=== PATIENT | female | born 1965 | race Caucasian/White ===

== ENCOUNTER → 2017-09-14 00:14 | Outpatient (CLI) | payer BC, SELFPAY ==
--- NOTE | 2017-09-14 07:46 | DI.REPORT_ITS ---
SYMPTOM/DIAGNOSIS: 6 MO F/U RT BR US R92.8 6-MONTH FOLLOW UP RIGHT MAMMOGRAM, RIGHT BREAST ULTRASOUND: Mammograms were interpreted according to the usual protocol including computer analysis with CAD system, tomosynthesis and C view imaging. Breast density C. No suspicious masses or microcalcifications are seen. The skin and axilla are unremarkable. The opacity at the 12 o'clock position of the right breast appears stable. Right breast ultrasound was performed. Comparison is made with examination from 03/09/17. There are again seen several cystic and solid masses within the right breast. These all appear stable in size. No new breast masses are seen in the upper outer quadrant of the right breast. IMPRESSION: No evidence for malignancy. No significant change compared to the prior examination. A 6-month follow up right mammogram and ultrasound are requested for continued monitoring of these lesions. Category 3-C. These findings were discussed with the patient on the date of the examination. MQSA ASSESSMENT OF FINDINGS: Probably benign. Six month follow-up recommended. Category 3. Patient will receive a letter notifying them of these results. Bi-RADS category C. The breasts are heterogeneously dense, which may obscure small masses.
== END ==
PROVIDERS: PCP Nurse Practitioner Gerontology; Visit Provider Nurse Practitioner Family
DX: Z12.31 Encounter for screening mammogram for malignant neoplasm of breast (principal); R92.8 Other abnormal and inconclusive findings on diagnostic imaging of breast; N63.10 Unspecified lump in the right breast, unspecified quadrant; N60.11 Diffuse cystic mastopathy of right breast
CPT/HCPCS: 76642; 77061; 77065; G0279

== ENCOUNTER 2019-03-24 14:37 | Outpatient (REF) | payer OTHER, SELFPAY ==
--- NOTE | 2019-03-24 13:30 | PAPFT_PTH ---
PATIENT: Alisson Castaneda LOC: [facility] U#:[id number] AGE/SX: 53/F ROOM: RE03/24/[address]: GABBIE Leos : 1965 BED: DIS: 03/24/2019 SPEC #: [id number] RECD: 03/24/19 17:23 STATUS: CESAR REJacobo #: [id number] ZACH: 03/24/19 13:[address]: Nallely Santacruz DEPT: [facility] Cytology RECD BY: Farideh Rodriguez ENTERED: 03/24/19 17:24 SP TYPE: PAPFT OTHR DR: Maylin West Tissues: 1 - CX/ENDOCX FOR PAP SMEARS Procedures: PAP THIN PREP/UVM Screening HPV DNA PROBE Comments: [id number]
== END 2019-03-24 14:57 ==
LOC: LBN 14:37
PROVIDERS: PCP Nurse Practitioner Gerontology; Visit Provider Nurse Practitioner Family
DX: Z12.4 Encounter for screening for malignant neoplasm of cervix (principal); Z11.51 Encounter for screening for human papillomavirus (HPV)
CPT/HCPCS: 88142; 87624

== ENCOUNTER 2019-06-29 03:02 | Outpatient (CLI) | payer OTHER, SELFPAY ==
--- NOTE | 2019-06-29 13:19 | DI.MAMMO_ITS ---
EXAM: MG MAMMO SCREENING CLINICAL HISTORY: screening,Z12.39 TECHNIQUE: Bilateral full field digital CC and MLO mammographic images were obtained with 3D tomosyn thesis and utilizing computer aided detection (CAD). COMPARISON: Available for comparison. FINDINGS: Masses/Architectural Distortion: The opacity seen at the 12 o'clock position of the right breast appe ars stable. No suspicious masses are seen. Microcalcifications: No suspicious pleomorphic-type are seen. Skin Thickening/Nipple Retraction: None. IMPRESSION: 1. No significant interval change with no specific features of malignancy noted. 2. Unless there is more urgent need, screening mammography is recommended, as per [place] [employer] guidelines. BI-RADS Category 2 - Benign Findings Breast Density - Category C - Heterogeneously dense The mammogram demonstrates the patient's breast tissue is dense. Dense breast tissue is very common a nd is not abnormal but dense breast tissue can make it harder to find cancer on a mammogram. Also, de nse breast tissue may increase their breast cancer risk. This information about the result of the [facility] mogram report was provided to the patient to raise their awareness. Use this report when you speak wi th the patient about their risks for breast cancer, which includes their family history. At that time , you may recommend for more screening tests (Ultrasound or MRI) as they might be useful based on the ir risk. A negative radiographic report should not delay biopsy if a dominant or clinically suspicious mass is present. Up to ten percent of cancers are not identified on mammography. A negative report may reinforce clinical impression. Adenosis and dense breasts may obscure an underlying neoplasm. False positive reports average 6 to 10%. Patient will receive a letter notifying them of these results.
== END 2019-06-29 03:22 ==
PROVIDERS: PCP Nurse Practitioner Gerontology; Visit Provider Nurse Practitioner Family
DX: Z12.31 Encounter for screening mammogram for malignant neoplasm of breast (principal)
CPT/HCPCS: 77063; 77067

== ENCOUNTER 2019-08-23 07:03 | Day surgery (SDC) | payer OTHER, SELFPAY ==
--- NOTE | 2019-08-23 | DI.RAD_ITS ---
EXAM: XR PORTABLE CHEST AP CLINICAL HISTORY: rule out aspiration TECHNIQUE: COMPARISON: No exams were available for comparison FINDINGS: The heart is not enlarged. There are minor linear areas of increased radiodensity predominately in l eft lung base consistent with scarring. No focal consolidation. No pleural effusion seen on this fr ontal film. IMPRESSION: No evidence of acute process.
--- NOTE | 2019-08-23 06:54 | W.COLOREPORT ---
Date of service: 08/23/19 Time of Service: 08:32 Colonoscopy Report Date of procedure: 08/23/19 Pre-op diagnosis general: Colon Cancer Screening Post-op diagnosis procedure note: same Procedure: Colonoscopy Surgeon: Radha Miguel Anesthesia proc note operative: other (General/ ASA 2/ Urbano Soto, ALEX) Estimated blood loss (mL): 0 Pathology: none sent Complications: None Disposition: same day Indications: Mrs. Castaneda is a pleasant 53 year old female here to discuss her first screening colonoscopy. She is healthy and has had no changes in bowel habits, melena, hematochezia, abdominal pain or unintentional weight loss. There is no family history of colon cancer. Prep: Miralax/Dulcolax Procedure Start Time: :32 Procedure End Time: :57 Retraction Time: 10 minutes Findings: Normal colon Procedure Description: After informed consent was obtained the patient was taken to the procedure room and placed in a left decubitous position. Monitors were applied and a time out was done. The patients name, date of , procedure, allergies to medications and metal in their body was reviewed. The patient was then sedated. Once sedated and comfortable a rectal exam was done. External exam was normal. Internal exam revealed a normal sphincter tone and no palpable masses. The scope was then introduced and retro-flexed. No internal hemorrhoids, masses or polyps were identified on retro-flexion. The scope was then advanced to the cecum with some difficulty. Her colon was tortuous. The ileocecal valve and appendiceal orifice were identified. The prep was adequate. The scope was then slowly retracted over 10 minutes back into the rectum. There were no polyps and no diverticula. The patient had some emesis towrds the end of the procedure but coughed the whole time protecting her airway. The scope was removed and the patient was woken up and taken back to Same day surgery in stable condition. She did wake up coughing. We will monitor in SDS. If there is wheezing then I may order a chest X-Ray. The patient tolerated the procedure well and there were no immediate complications. Follow up: The patient should follow up in 10 years unless they develop changes in bowel habits or other new gastrointestinal complaints.
--- NOTE | 2019-08-23 06:55 | W.PM.DSUDISC ---
Discharge Plan Disposition Patient Disposition: HOME Condition: Good Discharge Details Reason For Visit: SCREENING Attending Provider: Radha Miguel Primary Care Provider: Maylin West Home Meds and New Rx's Prescriptions: Continued cyclobenzaprine 5 mg tablet 5 mg PO HS PRNRF: 0 methocarbamol [Robaxin] 500 MG tablet 500 mg PO TID Qty: 90 RF: 0 Discontinued bisacodyl [Dulcolax (bisacodyl)] 5 mg tablet,delayed release (DR/EC) 5 mg PO ONCE Qty: 4 RF: 0 polyethylene glycol 3350 17 gram powder in packet 255 g PO DAILY Qty: 15 RF: 0 Discharge Instructions Additional Instructions: Findings: Normal colonoscopy Follow up: 10 years Please call if you develop: fevers >101.5 Nausea or Vomiting Abdominal pain that is not transient DAY SURGERY UNIT POST ENDOSCOPY INSTRUCTIONS 1. Because there will be medication in your system for the next 24 hours, you may feel a little sleepy. Your coordination will be affected. Therefore: a. Do not drive or operate dangerous equipment for 24 hours. b. Do not drink alcohol beverages for 24 hours (not even beer). c. Plan to go home and rest for the day. 2. Generally there are no restrictions on your activity after a day or so has gone by, but you may feel a bit fatigued for a few days. 3 After you arrive home you may have a light meal and return to a normal diet as you can tolerate it without feeling sick to your stomach. 4. After surgery, you may feel pain or discomfort. This should be only transient, but if it persists please contact your doctor. 5. If there are any questions regarding the findings of your procedure, please feel free to contact your doctor. 6. If you are unable to contact your doctor with a problem, contact the hospital at [phone]. 7. Continue all your regular medications unless directed otherwise. I understand the above instructions and have no questions. Signature of Patient or Responsible Adult Escort Date/Time Name of Responsible Adult Escort Signature of Nurse Date/Time Stand Alone Forms: Colonoscopy Post Instructions, Anthony Gonzáles (DSU) Activity:: Activity as Tolerated Diet:: As Tolerated Discharge Orders Discharge Orders: Discharge Order (Routine); Ordered 08/23/19 Ordered By: Radha Miguel
[2019-08-23 07:30] VITALS: BP 125/80; PULSE 53; RESP 16; TEMP 36; O2SAT 100
[2019-08-23] MEDS: Lactated Ringers 1,000 ML 80 ML IV (08:10)
[2019-08-23 09:46] VITALS: BP 117/73; PULSE 56; RESP 18; TEMP 35.9; O2SAT 97
[2019-08-23 10:20] VITALS: BP 127/78; PULSE 62; RESP 17; TEMP 36; O2SAT 98
== END 2019-08-23 10:59 | disposition home or self-care (01) ==
LOC: SUR 07:03
PROVIDERS: PCP Nurse Practitioner Gerontology; Visit Provider Surgery
PROC: 0DJD8ZZ Inspection of Lower Intestinal Tract, Via Natural or Artificial Opening Endoscopic (ICD-10-PCS; CPT 45378; principal; 2019-08-23 08:30)
DX: Z12.11 Encounter for screening for malignant neoplasm of colon (principal); K91.81 Other intraoperative complications of digestive system; R11.10 Vomiting, unspecified; R05 Cough
CPT/HCPCS: 45378; 81025; 71045; J2001

== ENCOUNTER 2019-12-18 12:04 | Outpatient (CLI) | payer OTHER, SELFPAY ==
[2019-12-20 14:30] LABS: SARS-CoV-2 RNA Not Detected (NotDetected); SARS-CoV-2 RNA Source Nasal/Nares
== END 2019-12-18 12:24 ==
PROVIDERS: PCP Nurse Practitioner Family; Visit Provider Nurse Practitioner Family
DX: Z11.59 Encounter for screening for other viral diseases (principal)
CPT/HCPCS: U0003

== ENCOUNTER 2020-03-29 02:29 | Outpatient (CLI) | payer OTHER, SELFPAY ==
[2020-03-29 12:56] LABS: Hemoglobin A1C 5.3 % (<5.7)
[2020-03-29 13:14] LABS: Calculated LDL 82 mg/dL (<100); Cholesterol 164 mg/dL (<200); HDL Cholesterol 63 mg/dL (40-60); TSH 0.69 uIU/mL (0.36-3.74); Triglyceride 96 mg/dL (<150)
== END 2020-03-29 02:30 | disposition home or self-care (01) ==
LOC: LOS 02:29
PROVIDERS: PCP Nurse Practitioner Family; Visit Provider Nurse Practitioner Family
DX: Z13.1 Encounter for screening for diabetes mellitus (principal); Z13.220 Encounter for screening for lipoid disorders; Z13.29 Encounter for screening for other suspected endocrine disorder
CPT/HCPCS: 36415; 80061; 83036; 84443

== ENCOUNTER 2020-06-28 09:38 | Outpatient (REF) | payer OTHER, SELFPAY ==
--- NOTE | 2020-06-28 09:20 | PAPFT_PTH ---
PATIENT: Alisson Castaneda LOC: [facility] U#:[id number] AGE/SX: 54/F ROOM: RE06/28/[address]: GABBIE Leos : 1965 BED: DIS: 06/28/2020 SPEC #: [id number] RECD: 06/28/20 12:40 STATUS: CESAR REJacobo #: [id number] ZACH: 06/28/20 09:[address]: Dixie Moore DEPT: [facility] Cytology RECD BY: Linda Guzmán ENTERED: 06/28/20 12:41 SP TYPE: PAPFT OTHR DR: Pee Sainz, SANIA Tissues: 1 - CX/ENDOCX FOR PAP SMEARS Procedures: PAP THIN PREP/UVM Screening HPV DNA PROBE Comments: [id number]
== END 2020-06-28 09:39 | disposition home or self-care (01) ==
LOC: LBN 09:38
PROVIDERS: PCP Nurse Practitioner Family; Visit Provider Nurse Practitioner Family
DX: Z12.4 Encounter for screening for malignant neoplasm of cervix (principal); Z87.410 Personal history of cervical dysplasia; Z11.51 Encounter for screening for human papillomavirus (HPV)
CPT/HCPCS: 88142; 87624

== ENCOUNTER → 2021-07-04 00:49 | Outpatient (CLI) | payer BC, SELFPAY ==
--- NOTE | 2021-07-04 07:15 | DI.MAMMO_ITS ---
Exam(s) MAMMO SCREENING EXAM: MAMMO SCREENING CLINICAL HISTORY: screening, Z12.39 TECHNIQUE: Mammograms were interpreted according to the usual protocol including computer analysis w Microarrays CAD system, tomosynthesis and C-view imaging. COMPARISON: 2012 through 2019 FINDINGS: The breasts are composed of heterogeneously dense fibroglandular densities, Breast Density category C . There is question of some increase in areas of nodularity in the inferior portions of both breasts on the MLO views. There are innumerable bilateral scattered benign-appearing calcifications. No suspi cious microcalcifications are seen. No skin thickening or abnormal axillary lymph nodes are seen. . IMPRESSION: Bilateral BI-RADS category 0-Assessment Incomplete: Need additional imaging evaluation. Spot florentino jackie views and ultrasound are requested for further evaluation. . Breast Density Category C, heterogeneously Dense. The mammogram demonstrates the patient's breast tissue is dense. Dense breast tissue is very common a nd is not abnormal but dense breast tissue can make it harder to find cancer on a mammogram. Also, de nse breast tissue may increase breast cancer risk. This information about the result of the mammogram report was provided to the patient to raise their awareness. Use this report when you speak with the patient about their risks for breast cancer, which includes their family history. At that time, you may recommend additional screening tests (Ultrasound or MRI) as they might be useful based on their r isk. A negative radiographic report should not delay biopsy if a dominant or clinically suspicious mass is present. Up to ten percent of cancers are not identified on mammography. A negative report may reinforce clinical impression. Adenosis and dense breasts may obscure an underlying neoplasm. False positive reports average 6 to 10%.
== END ==
PROVIDERS: PCP Nurse Practitioner Family; Visit Provider Nurse Practitioner Family
DX: Z12.31 Encounter for screening mammogram for malignant neoplasm of breast (principal); R92.8 Other abnormal and inconclusive findings on diagnostic imaging of breast
CPT/HCPCS: 77063; 77067

== ENCOUNTER → 2021-07-17 01:42 | Outpatient (CLI) | payer BC, SELFPAY ==
--- NOTE | 2021-07-17 | DI.US_ITS ---
Exam(s) US BREAST LT COMPLETE US BREAST RT COMPLETE MG MAMMO SCREEN CALL BACK BI EXAM: MG MAMMO SCREEN CALL BACK BI AND BILATERAL COMPLETE BREAST ULTRASOUND CLINICAL HISTORY: INCREASED AREAS NODULARITY BILAT BREAST. TECHNIQUE: BILATERAL spot mammographic images obtained with 3D tomosynthesisand utilizing computer a ided detection (CAD). . Complete BILATERAL breast Ultrasound was also performed, including all 4 quadrants, the retroareolar regions, and both axillary regions.. COMPARISON: Prior mammograms were reviewed. Prior ultrasound examinations were reviewed, most recen t being 2018. this additional imaging was performed due to findings described on the recent screening mammogram of 07/04/2021. FINDINGS: DIAGNOSTIC BILATERAL MAMMOGRAM: Additional mammographic views performed todayreveal the nodular density at 12 o'clock position of the right breast to be relatively well-defined and noncalcified. Spot views of the left breast are somewhat equivocal. We proceeded with bilateral complete breast ultrasound... BILATERAL COMPLETE BREAST ULTRASOUND: RIGHT BREAST ULTRASOUND: At the 12 o'clock position there is previously described wider than taller partially solid partially cystic lobulated nodule which corresponds to the finding on the mammogram. This presently measures 3 .4 x 1.3 cm which is larger than prior measurement on prior ultrasound examinations. This exhibits n eutral through transmission. Recommend ultrasound-guided core biopsy. At 10-11 o'clock position there is again noted and unchanged conglomeration microcysts measuring 1.3 x 0.7 cm. Other findings in the left breast include a 3 millimeter microcysts at the 1 o'clock position and a 4 millimeter microcyst at the 2 o'clock position. 3 millimeter microcysts at the 6 o'clock position. Septated microcysts at the 7 o'clock position. 3 millimeter microcysts at the 8 o'clock position. There is no significant adenopathy in the right axilla. LEFT BREAST ULTRASOUND: At the 12 o'clock position there is a 3 millimeter hemorrhagic microcyst. At the 1 o'clock position there is a 4 millimeter hemorrhagic microcyst. At the 2 o'clock position there is a 10 by 5 millimeters cyst. At the 3 o'clock position there is a 5 millimeter microcyst. At the 6 o'clock position there is an 8 millimeter microcyst. At the 7 o'clock position there is a 5 millimeter microcyst. Also at 7 o'clock position is a wider than taller hemorrhagic microcysts measuring 7 x 3 mm At the 8 o'clock position there is a 2 millimeter microcyst. At 10 o'clock position there is a 4 millimeter microcyst. At the 11 o'clock position there is a 2 millimeter microcyst. There is no significant adenopathy in the left axilla. IMPRESSION: Mammographic and ultrasound findings as described above. The may concerning finding is at the 12 o'c lock position nodule in the right breast has increased in size from prior ultrasound examinations and therefore should undergo ultrasound-guided core biopsy. Findings are recommendations were discussed by myself with the patient today. BI-RADS Category 4 - Suspicious Abnormality: Biopsy should be considered Breast Density - Category C - Heterogeneously dense Breast density Category C or D implies that the patient has dense breast tissue. Dense breast tissue can make it harder to find cancer on a mammogram. Dense breast tissue is also associated with an incr eased risk of breast cancer. This information about the result of the mammogram report was provided to the patient to raise their awareness. Use this report when you speak with the patient about their risks for breast cancer, which includes their family history. At that time, you may recommend additional screening tests (Ultrasoun d or MRI) as these tests may add significant information. A negative radiographic report should not delay biopsy if a dominant or clinically suspicious mass is present. Up to ten percent of cancers are not identified on mammography. A negative report may reinforce clinical impression. Adenosis and dense breasts may obscure an underlying neoplasm. False positive reports average 6 to 10%. Patient will receive a letter notifying them of these results.
== END ==
PROVIDERS: PCP Nurse Practitioner Family; Visit Provider Nurse Practitioner Family
DX: Z12.31 Encounter for screening mammogram for malignant neoplasm of breast (principal); R92.8 Other abnormal and inconclusive findings on diagnostic imaging of breast; N60.11 Diffuse cystic mastopathy of right breast; N63.15 Unspecified lump in the right breast, overlapping quadrants; N60.12 Diffuse cystic mastopathy of left breast
CPT/HCPCS: 76642; 77063; 77067

== ENCOUNTER 2021-10-02 17:09 | Outpatient (REF) | payer BC, SELFPAY ==
--- NOTE | 2021-10-02 15:00 | PAPFT_PTH ---
PATIENT: Alisson Castaneda LOC: [facility] U#:[id number] AGE/SX: 55/F ROOM: RE10/02/[address]: GABBIE Leos : 1965 BED: DIS: 10/02/2021 SPEC #: [id number] RECD: 10/02/21 17:54 STATUS: CESAR REQ #: [id number] ZACH: 10/02/21 15:[address]: Nallely Santacruz DEPT: [facility] Cytology RECD BY: Farideh Rodriguez ENTERED: 10/02/21 17:55 SP TYPE: PAPFT QUENTIN DR: Pee Sainz, SANIA Tissues: 1 - CX/ENDOCX FOR PAP SMEARS Procedures: PAP THIN PREP/UVM Screening HPV DNA PROBE Comments: [id number]
== END 2021-10-02 17:10 | disposition home or self-care (01) ==
LOC: LBN 17:09
PROVIDERS: PCP Nurse Practitioner Family; Visit Provider Nurse Practitioner Family
DX: Z12.4 Encounter for screening for malignant neoplasm of cervix (principal); Z11.51 Encounter for screening for human papillomavirus (HPV)
CPT/HCPCS: 88142; 87624

== ENCOUNTER → 2023-07-15 04:36 | Outpatient (CLI) | payer BC, SELFPAY ==
--- NOTE | 2023-07-15 12:00 | DI.MAMMO_ITS ---
Exam(s) MAMMO SCREENING EXAM: MAMMO SCREENING CLINICAL HISTORY: screening. TECHNIQUE: Bilateral full field digital CC and MLO mammographic images were obtained with 3D tomosyn thesis and utilizing computer aided detection (CAD). COMPARISON: Prior mammograms were reviewed. Prior ultrasound examinations of 07/17/2021 were also reviewed. FINDINGS: Glandular tissue pattern is again noted be moderately dense, this somewhat decreasing the sensitivity of the mammogram for finding hidden underlying lesions. No new significant radiograph findings in left breast. In the right breast there is again noted previously described 12 o'clock position nodule which presen tly measures 3.8 x 2.2 cm the CC view, located 3 cm in from the nipple on the CC view and similar dis tance in from the nipple on the MLO view. There is also a concerning new finding in the right breast upper outer quadrant located approximately 8-9 cm from the nipple on both CC and MLO views. This has the appearance of a 1.5 x 1.5cm irregular nodule which contains pleomorphic calcifications, not evident in the most recent mammogram of 2021. This is highly suspicious for malignancy. There is no significant architectural distortion nor skin thickening-retraction. IMPRESSION: 1. In the right breast there is a new finding in the upper outer quadrant as described above which i s highly suspicious for malignancy . Spot compression views and ultrasound recommended. 2. Also in the right breast is another nodule again noted at 12 o'clock position, previously recomme nded for biopsy on report of July 2021. BI-RADS Category 0 - Assessment Incomplete: Need additional imaging evaluation Breast Density - Category C - Heterogeneously dense Breast density Category C or D implies that the patient has dense breast tissue. Dense breast tissue can make it harder to find cancer on a mammogram. Dense breast tissue is also associated with an incr eased risk of breast cancer. This information about the result of the mammogram report was provided to the patient to raise their awareness. Use this report when you speak with the patient about their risks for breast cancer, which includes their family history. At that time, you may recommend additional screening tests (Ultrasoun d or MRI) as these tests may add significant information. A negative radiographic report should not delay biopsy if a dominant or clinically suspicious mass is present. Up to ten percent of cancers are not identified on mammography. A negative report may reinforce clinical impression. Adenosis and dense breasts may obscure an underlying neoplasm. False positive reports average 6 to 10%. Patient will receive a letter notifying them of these results.
== END ==
PROVIDERS: PCP Nurse Practitioner Family; Visit Provider Nurse Practitioner Women's Health
DX: Z12.31 Encounter for screening mammogram for malignant neoplasm of breast (principal); R92.8 Other abnormal and inconclusive findings on diagnostic imaging of breast
CPT/HCPCS: 77063; 77067

== ENCOUNTER → 2023-07-16 03:32 | Outpatient (CLI) | payer BC, SELFPAY ==
--- NOTE | 2023-07-16 | DI.US_ITS ---
Exam(s) MG MAMMO SCREEN CALL BACK UNI US BREAST RT COMPLETE EXAM: MG MAMMO SCREEN CALL BACK UNI and U/S breast RT complete CLINICAL HISTORY: F/U ABNL MAMMO, NEW NODULE UPPER OUTER QUAD RT BREAST, R92.8. TECHNIQUE: Craniocaudal and mediolateral oblique Full Field Digital Mammography views of the right b reast with Computer Aided Diagnosis followed by Tomosynthesis and right breast ultrasound. All 4 rob drants of the right breast ultrasound were evaluated in addition to the retroareolar region and the r ight axilla. COMPARISON: Comparison is made with prior examinations. FINDINGS: Mammography/Tomosynthesis: Masses/Architectural Distortion: Pleomorphic calcifications are again seen within new area of density in the upper outer quadrant of the right breast. The areas irregular spiculated borders. There is again seen a well-circumscribed nodule in the retroareolar region of the right breast. Microcalcifictions: Pleomorphic calcifications within an area of density as described above in the up per outer quadrant of the right breast. Skin Thickening/Nipple Retraction: None. Complete right breast US: Echotexture: Normal appearance of the glandular tissue. Shadowing: No suspicious foci. Cyst: None. Solid lesions: At the 11 o'clock position of the right breast, there is an irregular hypoechoic 1.7 x 1.7 x 1.4 cm mass present. This corresponds to the spiculated mass with microcalcifications seen on the mammogram. At the 3 o'clock position, there is again seen a solid and cystic lesion measuring 2 .2 x 1.2 x 3.1 cm. This compares to 3.5 x 1.3 x 3.2 cm on the prior examination. Ductal dilation: None. IMPRESSION: 1. New spiculated mass with pleomorphic microcalcifications in the upper-outer quadrant of the right breast (at 11 o'clock 8 cm from the nipple. The findings are highly suggestive for malignancy. 2. Biopsy is recommended. 3. The findings were discussed with the patient on the date of the examination. Dr. Alia Chamberlain was contacted with these results at 10:15 a.m. on 07/16/2023. BI-RADS Category 5 - Highly Suggestive of Malignancy: Biopsy recommended Breast Density - Category C - Heterogeneously dense Breast density Category C or D implies that the patient has dense breast tissue. Dense breast tissue can make it harder to find cancer on a mammogram. Dense breast tissue is also associated with an incr eased risk of breast cancer. This information about the result of the mammogram report was provided to the patient to raise their awareness. Use this report when you speak with the patient about their risks for breast cancer, which includes their family history. At that time, you may recommend additional screening tests (Ultrasoun d or MRI) as these tests may add significant information. A negative radiographic report should not delay biopsy if a dominant or clinically suspicious mass is present. Up to ten percent of cancers are not identified on mammography. A negative report may reinforce clinical impression. Adenosis and dense breasts may obscure an underlying neoplasm. False positive reports average 6 to 10%. Patient will receive a letter notifying them of these results.
== END ==
PROVIDERS: PCP Nurse Practitioner Family; Visit Provider Nurse Practitioner Women's Health
DX: Z12.31 Encounter for screening mammogram for malignant neoplasm of breast (principal); N63.13 Unspecified lump in the right breast, lower outer quadrant
CPT/HCPCS: 76642; 77063; 77067

== ENCOUNTER → 2023-07-28 03:21 | Outpatient (CLI) | payer BC, SELFPAY ==
--- NOTE | 2023-07-28 07:50 | DI.US_ITS ---
Exam(s) US NEEDLE LOCAL BREAST WO RAD EXAM: US NEEDLE LOCAL BREAST WO RAD CLINICAL HISTORY: RIGHT BREAST MASS. Right Breast. TECHNIQUE: Ultrasound was provided for Dr. Pollard for guidance with performing right breast biopsy. COMPARISON: MG MG MAMMO SCREENING from 07/15/2023 MG MG MAMMO SCREEN CALL BACK UNI from 07/16/2023 US US BREAST RT COMPLETE from 07/16/2023 FINDINGS: Hard copy images show needle extending into the previously noted mass 4 times. A marker was left in place. IMPRESSION: Successful Ultrasound-guided Breast Biopsy.
--- NOTE | 2023-07-28 07:52 | BREAST_PTH ---
PATIENT: Alisson Castaneda LOC: [facility] U#:[id number] AGE/SX: 59/F ROOM: RE07/28/[address]: Emanuel Pollard MD : 1965 BED: DIS: SPEC #: [id number] RECD: 07/28/23 12:50 STATUS: CESAR REQ #: [id number] ZACH: 07/28/23 07:[address]: Emanuel Pollard DEPT: Surgical Specimen RECD BY: Farideh Rodriguez ENTERED: 07/28/23 12:52 SP TYPE: Breast OTHR DR: Pee Sainz, RESIDENTIAL COUNSELOR Tissues: 1 - BREAST BX NEEDLE Procedures: GROSS AND MICRO LEVEL 4 Her-2 Dual CHANELLE [id number] IPEX ESTROGEN/PROGESTERONE RECEPTOR IPEX STAIN Comments: [id number]
--- NOTE | 2023-07-28 08:03 | OPPNE_ITS ---
Date of service: 07/28/23 Time of Service: 08:03 Procedure Note Date of procedure: 07/28/23 Procedure: Right breast core needle biopsy Surgeon/Proceduralist/Physician: Emanuel Pollard Procedure Diagnosis: Right breast lesion with microcalcifications Procedure Indications: Alisson is a 57-year-old woman who was found to have a lesion in the right breast with microcalcifications, and features concerning for malignancy. Core needle biopsy is recommended Procedure Description: I met with Alisson in the ultrasound suite, and reviewed the plan for core needle biopsy, and what to expect in terms of the nature of the procedure as well as the risks, benefits, and recovery. Alisson provided informed consent. Next, with real-time ultrasound guidance, we isolated the lesion seen on the previous ultrasound. Features appeared consistent with the prior study. The skin adjacent to the probe was then cleansed, and local anesthetic was used to infiltrate the area. Then, under the guidance of the ultrasound, I advanced a 22 mm Bard core biopsy needle to the periphery of the lesion. Specimen was obtained. This was repeated 2 more times for service center representative samples throughout the lesion. A radiopaque marker was then placed in the area of the biopsies for future reference. A Band-Aid was applied to the access site, and postprocedure instructions were provided. I will call Alisson with the results of the biopsies once they are available.
== END ==
PROVIDERS: PCP Nurse Practitioner Family; Visit Provider Surgery
DX: C50.911 Malignant neoplasm of unspecified site of right female breast (principal)
CPT/HCPCS: 19083; 88305; 88360; 76942; 88377

== ENCOUNTER 2023-11-24 02:20 | Outpatient (CLI) | payer BC, SELFPAY ==
--- NOTE | 2023-11-24 13:41 | DI.RAD_ITS ---
Exam(s) XR FOOT RT COMPLETE EXAM: XR FOOT RT COMPLETE CLINICAL HISTORY: Right foot pain,[id number]. TECHNIQUE: 2D digital imaging was performed. COMPARISON: No exams were available for comparison FINDINGS: 3 views No evidence of obvious fractures nor diastasis of the Lisfranc joint. No pes planus. Bone density is normal. No osseous lesions. Great toe metatarsophalangeal joint puma ears unremarkable. No obvious degenerative changes in the midfoot. More proximally there is an osteophytic density seen off the dorsal aspect of the distal talus, this measuring 5 x 2 mm. Cannot exclude subtle avulsion injury at this level. IMPRESSION: There is a 5 x 2 mm calcification off the dorsal aspect of distal talus as seen on the lateral view. Possibly that this may represent an avulsion injury. Correlation with site of tenderness is recomme nded. No other significant focal osseous findings evident. DATA REPOSITORY: RADIATION DOSE DELIVERED:
== END 2023-11-24 02:40 ==
LOC: DI 02:21
PROVIDERS: PCP Nurse Practitioner Family; Visit Provider Podiatrist
DX: M79.671 Pain in right foot (principal)
CPT/HCPCS: 73630

== ENCOUNTER 2024-04-14 00:38 | Outpatient (RCR) | payer BC, SELFPAY ==
[2024-04-14] MEDS: Normal Saline Flush 10 ML SYR IVP (07:19)
[2024-04-14 07:26] LABS: Abs Immature Grans 0.02 10^3/uL (0.0-0.06); Absolute Basophil Count 0.07 10^3/uL (0.0-0.2); Absolute Eosinophil Count 0.11 10^3/uL (0.0-0.7); Absolute Lymphocyte Count 1.86 10^3/uL (1.2-3.4); Absolute Monocyte Count 0.52 10^3/uL (0.1-0.8); Absolute Neutrophil Count 2.57 10^3/uL (1.2-6.7); Basophils % 1.4 %; Eosinophils % 2.1 %; HCT 35.1 % (36.0-46.0); HGB 12.4 g/dL (11.2-15.7); Immature Grans % 0.4 %; Lymphocytes % 36.1 %; MCH 33.6 pg (27.0-33.0); MCHC 35.3 % (32.0-36.0); MCV 95 fL (80-95); MPV 9.1 fL (8.0-11.0); Monocytes % 10.1 %; Neutrophils % 49.9 %; Platelet Count 309 10^3/uL (130-400); RBC 3.69 10^6/uL (3.93-5.22); RDW 12.9 % (11.7-14.6); RDW-SD 44.2 fL; WBC 5.15 10^3/uL (4.4-10.8)
[2024-04-14 07:42] LABS: ALT 64 U/L (14-59); AST 26 U/L (15-37); Albumin 3.5 g/dL (3.4-5.0); Alkaline Phosphatase 110 U/L (46-116); Anion Gap 8.2 mmol/L (3-11); BUN 19 mg/dL (7-18); Bilirubin, Total 0.6 mg/dL (0.2-1.0); CO2 27.8 mmol/L (21.0-32.0); CREATININE 1.2 mg/dL (0.55-1.02); Calcium 10.2 mg/dL (8.5-10.1); Chloride 106 mmol/L (98-107); Glucose 96 mg/dL (74-106); Potassium 4.4 mmol/L (3.5-5.1); Sodium 142 mmol/L (136-145); Total Protein 6.8 g/dL (6.4-8.2)
== END 2024-05-08 23:59 | disposition home or self-care (01) ==
LOC: INF 00:38
PROVIDERS: PCP Nurse Practitioner Family; Visit Provider Registered Nurse School
DX: C50.411 Malignant neoplasm of upper-outer quadrant of right female breast (principal); Z17.0 Estrogen receptor positive status [ER+]; Z17.31 Human epidermal growth factor receptor 2 positive status
CPT/HCPCS: 36591; 80053; 85025

== ENCOUNTER 2024-04-15 19:54 | Emergency (ER) | payer BC, SELFPAY ==
[2024-04-15 19:57] VITALS: BP 147/96; PULSE 77; RESP 18; TEMP 36.6; O2SAT 98
--- NOTE | 2024-04-15 20:15 | DI.CT_ITS ---
Exam(s) CT NECK CHEST W EXAM: CT NECK CHEST W INDICATION: edema to L chest/neck, ?port malfunction. COMPARISON: US US BREAST RT COMPLETE from 07/16/2023 US US NEEDLE LOCAL BREAST WO RAD from 07/28/2023 TECHNIQUE: FINDINGS: CT NECK SOFT TISSUES: VISUALIZED PARANASAL SINUSES: There is retention cyst in the left maxillary sinus which measures appr oximately 2 x 1.5 cm. There is no associated fluid level. Right maxillary sinus is clear. Sphenoid sinuses are clear as are the thumb oil air cells and mastoid air cells. NASOPHARYNX: Unremarkable ORODENTAL: Unremarkable. OROPHARYNX: Unremarkable. No masses evident. HYPOPHARYNX: Unremarkable. Valleculae and epiglottis and aryepiglottic folds appear normal. VOCAL CORDS: Unremarkable. No masses evident. Subglottic airway appears unremarkable. THYROID GLAND: Normal size gland. There is a solitary cyst or nodule in the right lobe measuring 6 x 6 mm. No focal findings in the isthmus and left lobe. SALIVARY GLANDS: Unremarkable. No significant findings in the parotid and submandibular glands. LYMPH NODES: There is no adenopathy evident in the neck and supraclavicular regions. VASCULAR: Some calcified plaque is noted on the posterior wall of the proximal left ICA but no hemody namically significant stenosis at this level. Right carotid bulb and proximal right ICA appear unrem arkable none. There is no thrombosis of the jugular veins. Left anterior chest wall spine Port-A-Ca th noted. No abnormal surrounding fat streaking nor fluid in the subcutaneous port compartment. The distal aspect of the port crosses the innominate vein to the SVC and the distal most aspect of the p ort line is in the upper right atrium. OSSEOUS: There is reversal of the normal cervical curvature. There is chronic disc space narrowing a t C 4-5, C5-6, and C6-7 levels. No significant listhesis. No facet malalignment. No significant os seous lesions CT CHEST: Lungs: There are no infiltrates nor pleural effusions. No ominous pulmonary nodules evident. No sig nificant focal findings in the trachea and mainstem bronchi. There is no bronchiectasis. Mediastinum: There is no hilar nor mediastinal adenopathy. No subcarinal adenopathy. No supraclavic ular adenopathy. No axillary adenopathy. No hiatal hernia. Cardiac: Heart size upper normal. There is no pericardial effusion. Caliber of thoracic aorta is wi thin normal limits. There is no evidence of aortic dissection. OSSEOUS: No fractures nor significant osseous lesions. OTHER: Multiple hypodensities in the liver noted measuring up to 3 cm size have the appearance of amanda ign cysts. No adrenal masses nor splenomegaly. Multiple surgical clips are noted in the left breast. In addition, there is a 2 cm nodule noted in t he right breast. IMPRESSION: 1. No significant pulmonary findings nor pleural effusions. 2. Distal tip of the left supra clavi in Port-A-Cath is in the upper right atrium. The port itself appears unremarkable. 3. Multiple cysts are noted in the liver, these ranging up to 3 cm size. Incidentally noted is a post inflammatory retention cysts in the left maxillary sinus as well as a ro und 6 millimeter benign-appearing nodular cyst in the right thyroid lobe. RADIATION DOSE DELIVERED: 564.01mGy.cm Total DLP DATA REPOSITORY: All CT scans at this facility are submitted to the National Radiology Data Registry (NRDR) Dose Index Registry (DIR) with the [employer] (ACR). RADIATION OPTIMIZATION: All CT scans at this facility use at least one of these dose optimization te chniques: automated exposure control; mA and/or kV adjustment per patient size (includes targeted exa ms where dose is matched to clinical indication); or iterative reconstruction.
--- NOTE | 2024-04-15 20:15 | W.ED.GENAD ---
Discharge Plan Discharge Details Chief Complaint: Allergic Primary Care Provider: Pee Sainz ED Provider: Ray Zuniga Home Meds and New Rx's Prescriptions: No Action melatonin 200 mcg tablet 200 mcg PO QHS PRN magnesium 200 mg tablet 200 mg PO DAILY omega 6-slu-qyn-fish oil [Fish Oil] 1,000 (120-180) mg capsule 1 cap PO DAILY NewFlora 10 billion cell capsule 100 mmu cells PO DAILY HPI <KHADIJAH Kasper - Last Filed: 04/15/24 22:31> General Date/Time Provider Initiated Documentation: 04/15/24 20:15. HPI Narrative: 58 year-old female presents to ED today by POV/ambulating with her with a chief complaint of possible port malfunction- patient finished chemotherapy 3 weeks ago, now starting hormone therapy, received infusion yesterday in L chest port- now having edema a few centimeters above this with some radicular symptoms to L arm. Quality described as just feels pain in anterior lateral neck, no radiation to redness, fever, complete numbness, unilateral arm swelling, lesions. Severity is described as mild to moderate. Palliating factors include nothing specific. Provoking factors include nothing specific. Events leading up to the incident/Associated Symptoms: Patient has breast cancer, Oncology is at [facility]. Patient not anticoagulated. Related Data Home Medications ?Medication ?Instructions ?Recorded ?Confirmed Lactobacillus acidophilus 10 100 mmu cells PO DAILY 04/15/24 04/15/24 billion cell capsule (NewFlora) magnesium 200 mg tablet 200 mg PO DAILY 04/15/24 04/15/24 melatonin 200 mcg tablet 200 mcg PO QHS PRN 04/15/24 04/15/24 omega 1-rkv-ulx-fish oil 1,000 mg 1 cap PO DAILY 04/15/24 04/15/24 (120 mg-180 mg) capsule (Fish Oil) Allergies Allergy/AdvReac Type Severity Reaction Status Date / Time No Known Allergies Allergy Verified 02/22/24 11:13 General Stated Complaint: Allergic ZANE: 3 Review of Systems <KHADIJAH Kasper - Last Filed: 04/15/24 22:31> All systems reviewed & are unremarkable except as noted in HPI and below Exam <KHADIJAH Kasper - Last Filed: 04/15/24 22:31> Narrative Exam Narrative: GENERAL APPEARANCE: Well-nourished, non-toxic, awake and alert, atraumatic, no acute distress. SKIN: Warm, pink, dry, intact, without rashes/lesions/ulcerations. HEAD: Normocephalic, atraumatic, normal hair distribution for gender/age. EYES: Normal conjunctiva, no exudates on lids/lashes. ENT: Nares patent, no circumoral cyanosis, no facial swelling NECK: Supple, trachea midline, painless cervical ROM, no midline cervical vertebral tenderness/crepitus/step-offs. LUNGS/CHEST: Lungs CTA bilaterally-no rhonchi/rales/wheezes diffusely, non-labored respirations, normal A/P diameter, symmetrical expansion, no chest wall deformity, small amount of palpable edema just above the proximal clavicle on the left, no erythema or warmth to touch, nonpitting, nontender, port in place without erythema HEART (CV/PV): Regular rate and rhythm without murmur, no peripheral edema, no JVD. ABDOMEN: Soft, non-distended, no guarding. MSK: Normal ROM, no swelling/deformity to bilateral UEs or LEs, moving all extremities without weakness, no cyanosis, spine midline without tenderness, normal curvature, brachial radiculopathy with positive Sage's test at epicondyles of left elbow, left radial pulse 2+, sensation intact, engineering project designer strength 5/5 NEURO: Mental Status AAOx4 - alert to person, place, time, events No facial droop, no forehead involvement. Motor: No focal weakness - strength 5/5 in bilateral UEs and LEs, proximal and distal, symmetric. Sensory: sensation intact to light touch globally. Gait normal: patient ambulated without ataxia into ED room. PSYCH: euthymic, cooperative, pleasant, appropriate speech Course <KHADIJAH Kasper - Last Filed: 04/15/24 22:31> Vital Signs Vital signs: Vital Signs Temperature 36.6 C 04/15/24 19:57 Pulse 77 04/15/24 19:57 Respiratory Rate 18 04/15/24 19:57 Blood Pressure 147/96 H 04/15/24 19:57 Pulse Oximetry 98 04/15/24 19:57 Temperature 36.6 C 04/15/24 19:57 Temperature Source Tympanic 04/15/24 19:57 Pulse 77 04/15/24 19:57 Respiratory Rate 18 04/15/24 19:57 Respiratory Effort Normal, Non-Labored 04/15/24 20:03 Respiratory Pattern Normal 04/15/24 20:03 Blood Pressure 147/96 H 04/15/24 19:57 Blood Pressure Position Sitting 04/15/24 19:57 Pulse Oximetry 98 04/15/24 19:57 Oxygen Delivery Method Room Air 04/15/24 19:57 Oxygen Flow Rate 0 04/15/24 19:57 Pain Level 3 04/15/24 19:57 Medical Decision Making <KHADIJAH Kasper - Last Filed: 04/15/24 22:31> This dictation utilizes [id number] dictation software and may contain unedited grammatical errors. 58 year-old female presents to ED today by POV/ambulating with her with a chief complaint of possible port malfunction- patient finished chemotherapy 3 weeks ago, now starting hormone therapy, received infusion yesterday in L chest port- now having edema a few centimeters above this with some radicular symptoms to L arm. Quality described as just feels pain in anterior lateral neck, no radiation to redness, fever, complete numbness, unilateral arm swelling, lesions. Severity is described as mild to moderate. Palliating factors include nothing specific. Provoking factors include nothing specific. Events leading up to the incident/Associated Symptoms: Patient has breast cancer, Oncology is at [facility]. Patients' medical history: Breast cancer, history of cervical dysplasia. Family and social history: Lives at home with , no recent travel or sick contacts. Pertinent exam findings / vital signs include [ ]. Differential / pathologies of concern include [ ]. Diagnostic studies of: -CBC, CMP, troponin, BNP, magnesium, TSH, CT neck and chest with contrast. -Laboratory workup is completely benign, mild increase in BUN -CT shows no large abscess by my read- shows mets Interventions of: -None ED Course/Assessment/Plan: 58-year-old female presents with some edema supraclavicular on the left with some brachial radiculopathy likely from the localized inflammation and swelling, it is unclear whether this port malfunction, report appears to be in the correct place by my interpretation of her CT, there is no obvious abscess, I had the images pushed to [facility] so her oncologist could review them electronically, otherwise her laboratory workup is benign and she is stable, I think she should follow-up with oncology team and return for any increasing swelling, fever, respiratory distress, chest pain, or worsening redness with warmth to touch to the area. Findings not consistent with abscess, neurovascular compromise of upper extremity, overt infection or cellulitis. Disposition of edema. Patient verbalized understanding of the plan and return to ED criteria and engaged in shared decision making. Medical Records Medical records reviewed: Yes I reviewed the patient's medical records. Imaging Data Radiologic Study: Attestation: I personally reviewed and interpreted this imaging study as follows: Imaging: CT Scan My impression: Port appears in place, no obvious abscess Lab Data Lab results reviewed: Yes I reviewed the patient's lab results. Labs: Laboratory Tests Range/Units 04/15/24 20:47 WBC (4.4-10.8) 10^3/uL 5.88 RBC (3.93-5.22) 10^6/uL 3.67 L Hgb (11.2-15.7) g/dL 12.1 Hct (36.0-46.0) % 35.2 L MCV (80-95) fL 96 H MCH (27.0-33.0) pg 33.0 MCHC (32.0-36.0) % 34.4 RDW (11.7-14.6) % 12.7 Plt Count (130-400) 10^3/uL 286 MPV (8.0-11.0) fL 9.0 Immature Gran % % 0.3 Neutrophils % % 54.1 Lymphocytes % % 34.5 Monocytes % % 7.5 Eosinophils % % 2.6 Basophils % % 1.0 Nucleated RBC % (0.0-0.3) % 0.0 Absolute Neutrophils (1.2-6.7) 10^3/uL 3.18 Absolute Lymphocytes (1.2-3.4) 10^3/uL 2.03 Absolute Monocytes (0.1-0.8) 10^3/uL 0.44 Absolute Eosinophils (0.0-0.7) 10^3/uL 0.15 Absolute Basophils (0.0-0.2) 10^3/uL 0.06 Sodium (136-145) mmol/L 144 Potassium (3.5-5.1) mmol/L 4.1 Chloride (98-107) mmol/L 106 Carbon Dioxide (21.0-32.0) mmol/L 28.4 Anion Gap (3-11) mmol/L 9.6 BUN (7-18) mg/dL 25 H Creatinine (0.55-1.02) mg/dL 1.0 Est GFR (CKD-EPI 2020) (mL/min/1.73m2) 65.71 Glucose (74-106) mg/dL 106 Calcium (8.5-10.1) mg/dL 9.7 Magnesium (1.8-2.4) mg/dL 2.0 Total Bilirubin (0.2-1.0) mg/dL 0.4 AST (15-37) U/L 21 ALT (14-59) U/L 60 H Alkaline Phosphatase (46-116) U/L 107 Troponin I (<or=51) ng/L 8 NT-Pro-B Natriuret Pep (<300) pg/mL 77 Total Protein (6.4-8.2) g/dL 6.8 Albumin (3.4-5.0) g/dL 3.6 TSH (0.36-3.74) uIU/mL 0.81 Quality:SDOH Health Related Social Needs: Health related social needs details none PFSH <KHADIJAH Kasper - Last Filed: 04/15/24 22:31> All Active Problems (Updated 02/22/24 @ 12:46 by Josie De La Torre NP) Pain in right foot (Acute) Achilles tendon contracture, right (Acute) Plantar fibromatosis (Acute) Plantar fasciitis (Acute) Breast cancer (Chronic) Arthritis (Acute) Lower back Urinary incontinence (Acute) Pelvic organ prolapse quantification stage 2 cystocele (Acute) Medical History (Updated 02/22/24 @ 12:46 by Josie De La Torre NP) Personal history of cervical dysplasia (08/12/12) 2007 - WENDY III Surgical History Cervical Procedure (~2006) JUAN Family History Mother Breast cancer Father Chronic obstructive lung disease Maternal Grandfather Cancer Social History Smoking/Tobacco Use Status: Former Tobacco Use tobacco type: cigarettes Quit Date: 02/08/85 Tobacco: How many years used: 5 Second Hand Exposure: Yes Smoking risk assessment performed?: Yes Alcohol Intake: current Alcohol Intake frequency: holidays/special occasions only Alcohol type: beer and wine Drug use: Daily Substance use type: marijuana Caregiver/Support person: No Household members: spouse and children Housing: house Communication Needs: None Do you need help understanding health information?: Never current occupation: public school teacher Pets and animals: Yes Pets and animals: cat(s) and dog(s) Sexually active: Yes Do you think of yourself as: straight/heterosexual Current gender identity: female What is your relationship status?: How often do you talk on the phone with friends or family?: three or more times per week How often do you get together with friends or relatives?: once per week How often do you attend quaker or samaritan services?: 4 or more times per year Do you belong to any clubs or organized social groups?: yes Panel score (0-1 are the most socially isolated patients): 4 What type of physical activity do you participate in: walking and other Details: Skiing Duration: 30-45 minutes/day Frequency: 5-6 times per week Kinza/Confucianism: Muslim Special kinza needs: No Seatbelt use: always Helmet use: Yes Helmet use: always Drive intox or ride w/intox river driver: No Do you feel safe at home: Yes Do you feel safe in your relationship?: Yes Female Reproductive History Menstrual Menopause type: natural PAWSS <KHADIJAH Kasper - Last Filed: 04/15/24 22:31> Have you Been Recently Intoxicated or Drunk Within the Last 30 days?: No Have you Ever Experienced Previous Episodes of Alcohol Withdrawal?: No Have you ever Experienced Withdrawal Seizures?: No Have you ever Experienced Delirium Tremens(DT)s?: No Have you ever undergone Alcohol Rehabilitation Treatment (i.e, inpt ot outpatient treatment programs)?: No Have you ever Experienced Blackouts?: No Have you ever Combined Alcohol with other Downers within the last 90 days?: No Have you ever Combined Alcohol with any other Substance of Abuse during the last 90 days?: No Positive Blood Alcohol level on Presentation? [PCS.BAL]: No Evidence of Increased Autonomic Activity (i.e. HR>120, tremor, sweating, agitation, nausea)?: No Result: 0 <Jenn Willis MD - Last Filed: 04/15/24 20:31> Result: 0
[2024-04-15 20:54] LABS: Abs Immature Grans 0.02 10^3/uL (0.0-0.06); Absolute Basophil Count 0.06 10^3/uL (0.0-0.2); Absolute Eosinophil Count 0.15 10^3/uL (0.0-0.7); Absolute Lymphocyte Count 2.03 10^3/uL (1.2-3.4); Absolute Monocyte Count 0.44 10^3/uL (0.1-0.8); Absolute Neutrophil Count 3.18 10^3/uL (1.2-6.7); Eosinophils % 2.6 %; HCT 35.2 % (36.0-46.0); HGB 12.1 g/dL (11.2-15.7); Immature Grans % 0.3 %; Lymphocytes % 34.5 %; MCHC 34.4 % (32.0-36.0); MCV 96 fL (80-95); Monocytes % 7.5 %; Neutrophils % 54.1 %; Platelet Count 286 10^3/uL (130-400); RBC 3.67 10^6/uL (3.93-5.22); RDW 12.7 % (11.7-14.6); RDW-SD 44.9 fL; WBC 5.88 10^3/uL (4.4-10.8)
[2024-04-15 21:38] LABS: ALT 60 U/L (14-59); AST 21 U/L (15-37); Albumin 3.6 g/dL (3.4-5.0); Alkaline Phosphatase 107 U/L (46-116); Anion Gap 9.6 mmol/L (3-11); BUN 25 mg/dL (7-18); Bilirubin, Total 0.4 mg/dL (0.2-1.0); CO2 28.4 mmol/L (21.0-32.0); Calcium 9.7 mg/dL (8.5-10.1); Chloride 106 mmol/L (98-107); Estimated GFR 65.71 (mL/min/1.73m2); Glucose 106 mg/dL (74-106); NT-proBNP 77 pg/mL (<300); Potassium 4.1 mmol/L (3.5-5.1); Sodium 144 mmol/L (136-145); Total Protein 6.8 g/dL (6.4-8.2); Troponin I 8 ng/L (<or=51)
[2024-04-15] MEDS: Omnipaque 350 MG/ML 100 ML BTL IJ (21:43)
[2024-04-15 21:44] LABS: TSH (W/Ref FT4) 0.81 uIU/mL (0.36-3.74)
[2024-04-15] MEDS: Normal Saline - Diluent 50 ML VIAL IJ (21:44)
--- NOTE | 2024-04-15 22:39 | W.EDPROG ---
Date of service: 04/15/24 Time of Service: 22:39 Medical Decision Making This patient was signed out to me. Please see previous notes for H&P and initial eval. In brief, 58yo F with breast cancer on chemo (last 3 weeks ago) and immunotherapy (yesterday) presenting on the instruction of her oncologist for port eval after developing edema adjacent to left chest port. Does not appear infected, labs reassuring. Signed out pending read on chest/neck CT. CT as below, port with satisfactory appearance on CT, no evident abscess. On my exam port is nontender with no erythema. Does have slight palbable (though not visible) nontender nonpitting edema on left chest superior to port and extending to lower portion of neck. No edema to LUE. Subjective numbness to hand, wrist, and forearm. With cancer and port in place, must consider possibility of DVT though exam not overly suggestive of this. Unfortunately no US available until Wednesday. Discussed with [facility] oncology Dr Short; local reaction not expected with her recent infusion, with no clinical signs of infection and reassuring CT no further specific oncology recommendations or concerns. Discussed with [facility] ED Dr. Montes De Oca; pt accepted ED to ED for DVT study. Pt declined ambulance and will go by private vehicle. The importance of presenting directly to [facility] ED was stressed. Imaging Data Radiologic Study: Imaging: CT Scan Radiologist's impression: IMPRESSION: 1. No acute findings. Satisfactory CT appearance of the left chest wall port. 2. Incidental findings as described. Tubes, catheters and devices: Left jugular approach port, satisfactory appearance. No focal soft tissue lesions or collections with attention to the left-sided chest wall port pocket. Lab Data Lab results reviewed: Yes I reviewed the patient's lab results. Quality:SDOH Health Related Social Needs: Health related social needs details none Discharge Plan Disposition Patient Disposition: Transfer-Acute Inpatient Care Specific Acute Inpt Facility: [facility] Condition: Stable Discharge Details Clinical Impression: Breast cancer, Patient on antineoplastic chemotherapy regimen, Swelling Primary Care Provider: Pee Sainz ED Provider: Amaya Mccrary Home Meds and New Rx's Prescriptions: No Action melatonin 200 mcg tablet 200 mcg PO QHS PRN magnesium 200 mg tablet 200 mg PO DAILY omega 4-prm-aaa-fish oil [Fish Oil] 1,000 (120-180) mg capsule 1 cap PO DAILY NewFlora 10 billion cell capsule 100 mmu cells PO DAILY Discharge Instructions Additional Instructions: Go directly to the [facility] Emergency department: [facility] ED [address] [place] [address] They will do imaging to look for a blood clot. This can be a life threatening condition if not treated. Discharge Data Discharge Date/Time-TO BE ENTERED AT DEPARTURE: 04/16/24 00:12
--- NOTE | 2024-04-15 22:42 | DI.VRAD_ITS ---
PROCEDURE INFORMATION: Exam: CT Neck With Contrast Exam date and time: 04/15/2024 21:45 Age: 58 years old Clinical indication: Other: Edema to L chest/neck, ? port malfunction; Prior surgery; Surgery date: 6+ months; Surgery type: Port placed in December TECHNIQUE: Imaging protocol: Computed tomography of the neck with contrast. 3D rendering (Not supervised by radiologist): MIP and/or 3D reconstructed images were created by the technologist. Contrast material: OMNIPAQUE; Contrast volume: 100 ml; Contrast route: INTRAVENOUS (IV); COMPARISON: CR XR PORTABLE CHEST AP 08/23/2019 09:34 FINDINGS: Tubes, catheters and devices: Left jugular approach port please see CT thorax below. Paranasal sinuses: Benign-appearing left maxillary sinus retention cyst. Salivary glands: . Glands are normal in size. Pharynx: . No significant tonsillar enlargement. Larynx: Normal epiglottis. Thyroid: Subcentimeter right thyroid nodule, no dedicated imaging follow up indicated in the absence of clinically suspicious findings. Trachea: Visualized trachea is unremarkable. Lungs: Unremarkable as visualized. Lymph nodes: No lymphadenopathy. Bones/joints: Degenerative changes in the spine. Reversal of the normal cervical lordosis. Soft tissues: No significant soft tissue swelling. IMPRESSION: No focal pathology is seen. PROCEDURE INFORMATION: Exam: CT Chest With Contrast; Diagnostic Exam date and time: 04/15/2024 21:45 Age: 58 years old Clinical indication: Other: Edema to L chest/neck, ? port malfunction; Prior surgery; Surgery date: 6+ months; Surgery type: Port placed in December TECHNIQUE: Imaging protocol: Diagnostic computed tomography of the chest with contrast. 3D rendering (Not supervised by radiologist): MIP and/or 3D reconstructed images were created by the technologist. Contrast material: OMNIPAQUE; Contrast volume: 100 ml; Contrast route: INTRAVENOUS (IV); COMPARISON: CR XR PORTABLE CHEST AP 08/23/2019 09:34 FINDINGS: Tubes, catheters and devices: Left jugular approach port, satisfactory appearance. No focal soft tissue lesions or collections with attention to the left-sided chest wall port pocket. Thyroid: Subcentimeter right thyroid nodule, no dedicated imaging follow up indicated in the absence of clinically suspicious findings. Lungs: Scattered microatelectasis. No airspace consolidation. Pleural spaces: No pneumothorax. No pleural effusion. Heart: No cardiomegaly. No pericardial effusion. Lymph nodes: No enlarged lymph nodes. Vasculature: No aortic aneurysm. Liver: Benign hepatic cyst(s), no followup necessary. Bones/joints: No acute fracture or subluxation. Soft tissues: Right and left breast surgical clips. Heterogeneous parenchyma particularly on the right would be better assessed with mammography if clinically indicated. IMPRESSION: 1. No acute findings. Satisfactory CT appearance of the left chest wall port. 2. Incidental findings as described. Dictated and Authenticated by: Erin Churchill MD. Orderin Efrain Bell MD
[2024-04-16 00:18] VITALS: BP 129/90; PULSE 67; RESP 20; TEMP 36.7; O2SAT 99
== END 2024-04-16 00:12 | disposition short-term general hospital (02) ==
PROVIDERS: Physician Assistant; Emergency Provider Student in an Organized Health Care Education/Training Program; PCP Nurse Practitioner Family
DX: R60.9 Edema, unspecified; Z79.69 Long term (current) use of other immunomodulators and immunosuppressants; C50.911 Malignant neoplasm of unspecified site of right female breast
CPT/HCPCS: 00123; 70491; 80053; 99285; 71260; 83735; 83880; 84443; 84484; 85025; J3490

== ENCOUNTER 2024-04-27 11:46 | Outpatient (REF) | payer BC, SELFPAY ==
--- NOTE | 2024-04-27 10:40 | PAPNONF_PTH ---
PATIENT: Alisson Castaneda LOC: [facility] U#:[id number] AGE/SX: 58/F ROOM: RE04/27/[address]: Jennifer Rosales MD : 1965 BED: DIS: 04/27/2024 SPEC #: [id number] RECD: 04/27/24 12:54 STATUS: CESAR REQ #: [id number] ZACH: 04/27/24 10:[address]: Jennifer Rosales DEPT: [facility] RECD BY: Farideh Rodriguez ENTERED: 04/27/24 12:55 SP TYPE: BRODERICK SAAVEDRA DR: Pee Sainz, MACHINE FILLER SERVICER Tissues: 1 - BODY FLUID CYTO(NOT S/U/N/EM)[facility] Procedures: BODY FLUID CYTO(NOT SPU/UR/NIP/ENDOM)[facility] Comments: [id number] (SENT FRESH) (REFRIGERATED)
== END 2024-04-27 11:47 | disposition home or self-care (01) ==
LOC: LBN 11:46
PROVIDERS: PCP Nurse Practitioner Family; Visit Provider Obstetrics & Gynecology
DX: N90.89 Other specified noninflammatory disorders of vulva and perineum (principal)
CPT/HCPCS: 88104

== ENCOUNTER 2024-07-07 00:32 | Outpatient (CLI) | payer BC, SELFPAY ==
--- NOTE | 2024-07-07 10:01 | DI.RAD_ITS ---
Exam(s) XR KNEE LT 3V AP,LAT,FABIAN EXAM: XR KNEE LT 3V AP,LAT,FABIAN CLINICAL HISTORY: Left knee pain for one month, no trauma, ?OA,m25.562. TECHNIQUE: 2D digital imaging was performed. COMPARISON: No exams were available for comparison FINDINGS: 3 views There is a prominent intra-articular corticated calcified body measuring 2 cm by 1.2 cm by 1.5 cm. This is located anteriorly in the joint space in the posterior aspect of the Hoffa fat pad region. P osteriorly there is a normal appearing fabella evident. There are no obvious degenerative changes in the knee. There appears to be a joint effusion as seen on the lateral view. No significant osseous lesions IMPRESSION: There is a 2 x 1.2 x 1.5 cm calcified body in the mid anterior knee joint space. Measurements as abo ve. Joint effusion noted. DATA REPOSITORY: RADIATION DOSE DELIVERED:
== END 2024-07-07 00:52 ==
LOC: DI 00:32
PROVIDERS: PCP Nurse Practitioner Family; Visit Provider Family Medicine
DX: M25.562 Pain in left knee (principal)
CPT/HCPCS: 73562

== ENCOUNTER 2024-07-31 02:37 | Outpatient (CLI) | payer BC, SELFPAY ==
--- NOTE | 2024-07-31 07:00 | DI.MRI_ITS ---
Exam(s) MR LOWER JOINT LT WO EXAM: MR LOWER JOINT LT WO CLINICAL HISTORY: F/U CALCIFICATION ANT FAT PAD SEEN ON XRAY,internal derangement lt knee,. TECHNIQUE: Multiplanar multisequence MRI was performed. COMPARISON: CR XR KNEE LT 3V AP,LAT,FABIAN from 07/07/2024 FINDINGS: BONES: There is no fracture or contusion pattern. JOINTS: A moderate-sized joint effusion is present. Articular cartilage: Patellofemoral joint: Articular small focal linear defect at the lateral facet. Thinning of the cartilage over the medial facet. Medial femoral tibial joint: Articular cartilage is unremarkable. Lateral femoral tibial joint: Articular cartilage is unremarkable. LIGAMENTS/TENDONS: Anterior Cruciate: Unremarkable. Posterior Cruciate: Unremarkable. Medial Collateral:Intact with surrounding fluid. Lateral Collateral ligament complex: Unremarkable. Extensor mechanism: Unremarkable. Medial retinaculum: Unremarkable. Lateral retinaculum: Unremarkable. Popliteus: Unremarkable. MENISCI: The medial meniscus there is a radial tear with separation at the posterior horn. There is some edema within the body but no discrete tear. The lateral meniscus is unremarkable. MUSCLES: Unremarkable. SOFT TISSUES: Mild anterior edema. The ossification seen on plain films lies at the inferior aspect of Hoffa's fat pad. IMPRESSION: Radial tear of the posterior horn of the medial meniscus. Fluid surrounding the medial collateral ligament could indicate sprain. Ossification noted on plain films lies within the inferior aspect of Hoffa's fat pad. DATA REPOSITORY:
== END 2024-07-31 02:57 ==
LOC: DI 02:37
PROVIDERS: PCP Nurse Practitioner Family; Visit Provider Student in an Organized Health Care Education/Training Program
DX: M23.222 Derangement of posterior horn of medial meniscus due to old tear or injury, left knee (principal)
CPT/HCPCS: 73721

== ENCOUNTER 2024-08-03 14:03 | Outpatient (REF) | payer BC, SELFPAY ==
--- NOTE | 2024-08-03 14:05 | PAPFT_PTH ---
PATIENT: Alisson Castaneda LOC: [facility] U#:[id number] AGE/SX: 58/F ROOM: RE08/03/[address]: Jennifer Rosales MD : 1965 BED: DIS: 08/03/2024 SPEC #: [id number] RECD: 08/03/24 17:53 STATUS: CESAR REJacobo #: [id number] ZACH: 08/03/24 14:[address]: Jennifer Rosales DEPT: [facility] Cytology RECD BY: Farideh Rodriguez ENTERED: 08/03/24 17:54 SP TYPE: PAPFT QUENTIN DR: Pee Sainz, SANIA Tissues: 1 - CX/ENDOCX FOR PAP SMEARS Procedures: PAP THIN PREP/[facility] Screening HPV DNA PROBE Comments: [id number] (HPV 16 & 18/45)
== END 2024-08-03 14:04 | disposition home or self-care (01) ==
LOC: LBN 14:03
PROVIDERS: PCP Nurse Practitioner Family; Visit Provider Obstetrics & Gynecology
DX: Z12.4 Encounter for screening for malignant neoplasm of cervix (principal)
CPT/HCPCS: 88142; 87624

== ENCOUNTER 2024-08-24 08:51 | Day surgery (SDC) | payer BC, SELFPAY ==
[2024-08-24] VITALS (28 sets, daily range): BP systolic 113–142; BP diastolic 72–85; PULSE 48–71; RESP 8–23; TEMP 36–36.5; O2SAT 97–100; BMI 26.5
--- NOTE | 2024-08-24 07:12 | W.PM.DSUDISC ---
Date of service: 08/24/24 Discharge Plan Disposition Patient Disposition: Home Condition: Stable Discharge Details Attending Provider: Aris Davis Primary Care Provider: Pee Sainz Home Meds and New Rx's Prescriptions: New aspirin 81 mg tablet,delayed release (DR/EC) 81 mg PO DAILY 14 Days Qty: 14 0RF naproxen 250 mg tablet 250 - 500 mg PO BID PRN (Reason: Moderate pain) Qty: 40 0RF oxycodone 5 mg tablet 5 - 10 mg PO Q4H PRN (Reason: Moderate to severe pain) Qty: 9 0RF Continued anastrozole 1 mg tablet 1 mg PO DAILY Patient Comments: 08/24/24 Pt has not started. Herceptin 150 mg recon soln 150 mg IV Q3W Rx Instructions: administer over 30 mins melatonin 200 mcg tablet 200 mcg PO QHS PRN magnesium 200 mg tablet 200 mg PO DAILY omega 5-ozq-fjs-fish oil [Fish Oil] 1,000 (120-180) mg capsule 1 cap PO DAILY NewFlora 10 billion cell capsule 100 mmu cells PO DAILY Discharge Instructions Additional Instructions: Surgery: Left knee arthroscopy with extensive debridement (removal large anterior ossification and debridement of Hoffa's fat pad, suprapatellar adhesions), partial medial & small partial lateral meniscomy, and patellar & medial femoral condyle chondroplasty on 08/24/2024 Activity: Weightbearing as tolerated. Advance range of motion as comfort allows. No knee brace or crutches needed as soon as comfortable. Recommend avoiding sports, pivoting, and squatting for 6-8 weeks. A physical therapy prescription will be sent electronically to start in 3 weeks. Prescriptions: Aspirin 81 mg take 1 daily to prevent a blood clot for 14 days Naproxen 250 mg take 1-2 every 12 hours with a meal as needed for moderate pain Oxycodone 5 mg take 1-2 every 4-6 hours as needed for severe pain You may use [id number]-arcjsbb Tylenol (acetaminophen) as needed for mild pain. These pain medications may be taken all at once or in different combinations as needed. Also, recommend Colace (docusate) as a stool softener as surgery and pain medicine cause constipation. You may try fdhr-hgm-ivcjaox diphenhydramine (Benadryl) 25-50 mg nightly as a sleep aid Dressings: Leave dressing in place for 3 days. May then remove and leave open to air or cover incisions with Band-Aids. Leave the sticky Steri-Strips in place until they fall off or remove them after you shower. May shower after 5 days. Follow-up: 10-14 days with an orthopedic physician payroll administrative assistant 09/05/24 @ 9:30AM and 6-[address] Davis if needed You may take off the leg compression stockings this evening at home. You may also leave them on a few days longer if you have a history of leg swelling or edema. Let us know right away if you develop any redness, drainage, fevers, chest pain, or trouble breathing. Do not drink alcohol or drive for at least 24 hours after anesthesia. Please call the office during business hours with any questions or concerns. Stand Alone Forms: Anesthesia Discharge Inst., Anthony Gonzáles (DSU) Discharge Orders Discharge Orders: Discharge Order (Routine); Ordered 08/24/24 Ordered By: Jorge Yuan DS: Diagnosis Discharge Diagnosis (1) Chondromalacia of patella, left: Status: Acute (2) Hoffa disease of left knee: Status: Acute (3) Acute medial meniscus tear of left knee: Status: Acute
--- NOTE | 2024-08-24 07:19 | W.PM.OP ---
Operative Note Operative Note PRE-OP DIAGNOSIS: Left knee 1. Hoffa's fat pad ossification 2. Large radial posterior horn medial meniscus tear 3. Patellofemoral chondromalacia POST-OP DIAGNOSIS: same Left knee 1. Hoffa's fat pad ossification 2. Large radial posterior horn medial meniscus tear 3. Patellofemoral chondromalacia 4. Small lateral meniscus tear 5. Femoral condyle chondromalacia PROCEDURE: Left knee 1. Partial medial & lateral meniscectomy, CPT #42229 2. Extensive debridement, CPT #01527: Removal of large anterior ossification, debridement of Hoffa's fat pad, resection suprapatellar adhesions and synovitis 3. Chondroplasty, CPT #95715: Patella and medial femoral condyle SURGEON: Aris Davis LOTUS NOTES DEVELOPER: None None ANESTHESIA TYPE: Local By Surgeon and General LMA/ETT Refer to Anesthesia Record ESTIMATED BLOOD LOSS: 5 PATHOLOGY: none sent TOURNIQUET TIME: 0 Patient was transported to: PACU Patient's condition: stable Indications: Please see complete medical record for details. Findings: Exam under anesthesia: Full range of motion, anterior fullness, no instability Arthroscopic findings: Significant global synovitis, moderate medial and lateral plical band suprapatellar adhesions. Moderate undersurface patellar chondromalacia, moderate to moderately significant medial femoral condyle chondromalacia. Relatively intact lateral cartilage. Small white zone posterior horn to body lateral meniscus tearing. Large radial posterior horn medial meniscus tearing. Procedure Description: In the operating room, general anesthesia was induced. The patient was positioned supine on the operating room table. All bony prominences were well-padded. Preoperative antibiotics were administered. The knee was prepped and draped in the usual sterile fashion. The correct patient, procedure, and side of the procedure were all verified prior to incision. Exam under anesthesia was performed. 30 cc of 0.25% bupivacaine containing epinephrine was infiltrated about the planned anteromedial and anterolateral knee arthroscopy portals and anterior Hoffa's fat pad about the needle palpable bony fracture. The portals were established and a complete diagnostic arthroscopy was performed with relevant findings detailed above. Starting in the patellofemoral space synovitis was resected with a shaver, medial and lateral gutter plica bands were then transected with the radiofrequency ablator, and the shaver was used to smooth the margins of the synovitis and remove adhesions from the supra speller space. The undersurface of patella had some cartilage fissuring and fibrillations that were smoothed lightly to a more regular margin with a torpedo shaver. In the anterior intercondylar area the mechanical shaver was used to remove significant Hoffa's fat pad synovitis. The medial meniscus was then inspected and showed the large posterior horn radial tear as expected. Using a combination of hand instruments including meniscal biters and a power shaver and working through the anteromedial and anterolateral portals the meniscus was debrided of all torn tissue to a stable margin. Care was taken to preserve as much meniscus tissue was possible. The medial femoral condyle had some cartilage unstable flaps and irregularity that was lightly smoothed with with a torpedo shaver as well. The meniscal remnant was probed and found to have a stable margin, stable root, and no other tears. Lateral meniscus was then trimmed using the torpedo shaver of the small amount of white tearing. Attention was then turned to the anterior bony ossification within the fat pad. Some of the bone was then removed with a shaver as it was soft, then the majority of it was dissected out using a shaver and ablator and then largely removed with a pituitary rongeur with smaller fragments removed as well using a pituitary rongeur and the margins smooth and ablated. The knee was copiously irrigated with arthroscopic fluid until there was a clear effluent before being drained of all fluid. The anteromedial and anterolateral portals were closed in 3-0 Monocryl in a buried interrupted fashion. Mastisol, Steri-Strips, and 4 x 4 gauze were applied over the incisions. The knee was then wrapped gently with an JASVIR comressive bandage. The patient awoke from anesthesia without complication and was transferred to the recovery room in a stable condition. Date of Procedure: 08/24/24
--- NOTE | 2024-08-24 10:01 | W.ANESPRE ---
General Info Date of Service Date Performed: 08/24/24 Height: 5 ft 11 in Weight: 86.4 kg Body Mass Index (BMI): 26.5 Surgical Procedure: Operation Date: 08/24/24 10:40 Proposed Procedure Side Surgeon p Knee Arthroscopy w/any indicated Meniscal, Chondral and Synovial surgery Left Aris Davis MD Actual Procedure Side Surgeon p Knee Arthroscopy w/any indicated Meniscal, Chondral and Synovial surgery Left Aris Davis MD Pre-Op Diagnosis Post-Op Diagnosis (1) Acute medial meniscus tear of left knee: (2) Hoffa disease of left knee: (3) Chondromalacia of patella, left: (1) Acute medial meniscus tear of left knee: (2) Hoffa disease of left knee: (3) Chondromalacia of patella, left: Meds Allergies and Home Medications Allergies Allergy/AdvReac Type Severity Reaction Status Date / Time No Known Allergies Allergy Verified 08/24/24 10:03 Home Medication ?Medication ?Instructions ?Recorded Lactobacillus acidophilus 10 100 mmu cells PO DAILY 04/15/24 billion cell capsule (NewFlora) magnesium 200 mg tablet 200 mg PO DAILY 04/15/24 melatonin 200 mcg tablet 200 mcg PO QHS PRN 04/15/24 omega 0-ulh-cav-fish oil 1,000 mg 1 cap PO DAILY 04/15/24 (120 mg-180 mg) capsule (Fish Oil) anastrozole 1 mg tablet 1 mg PO DAILY 08/09/24 trastuzumab 150 mg intravenous 150 mg IV Q3W 08/09/24 solution (Herceptin) Current Visit Medications: Current Medications Generic Name Dose Route Start Last Admin Trade Name Freq PRN Reason Stop Dose Admin Ringer's Solution 1,000 mls @ 30 mls/hr 08/24/24 06:00 IV 08/24/24 23:59 INFUSION ALEXX Cefazolin Sodium/Dextrose 2 gm in 50 mls @ 100 mls/hr 08/24/24 06:00 Ancef Duplex IVPB 08/24/24 23:59 PREOP ALEXX Tranexamic Acid/Sodium Chloride 1,000 mg in 100 mls @ 600 mls/hr 08/24/24 06:00 IVPB 08/24/24 23:59 PREOP ALEXX IV Miscellaneous Supplies 1 each 08/24/24 06:00 Iv Access IV 08/24/24 23:59 DIRECTED ALEXX Oxycodone HCl 0 mg 08/24/24 07:14 Oxycodone 5 Mg Tab PO 09/23/24 07:13 Q3H PRN PRN Pain Sodium Chloride 0 ml 08/24/24 06:00 Normal Saline Flush 10 Ml Syr IV 08/24/24 23:59 PRN PRN Sodium Chloride 0 ml 08/24/24 06:00 Normal Saline 10 Ml Vial IJ 08/24/24 23:59 DIRECTED PRN Sterile Water 0 ml 08/24/24 06:00 Water,Injection,Sterile 10 Ml Vial IJ 08/24/24 23:59 DIRECTED PRN PFSH Active Problems Active Problems: Problem Status Onset Code Chondromalacia of patella, left Acute M22.42 Hoffa disease of left knee Acute E88.89 Acute medial meniscus tear of left knee Acute S83.242A Internal derangement of left knee Acute M23.92 Left knee pain Acute M25.562 Pain in right foot Acute M79.671 Achilles tendon contracture, right Acute 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 M72.2 Plantar fasciitis Acute M72.2 Breast cancer Chronic C50.919 Arthritis Acute M19.90 Urinary incontinence Acute R32 Medical History Medical History 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 Pelvic organ prolapse quantification stage 2 cystocele Personal history of cervical dysplasia (08/12/12) 2007 - WENDY III Medical History Comments:: Daily marijauna; last 7am today Surgical History Surgical History History of colonoscopy 2019 History of lumpectomy of right breast Stage 2 luminal HER 2 - negative margins Status post left breast lumpectomy +margins - repeat lumpectomy April 2024 Cervical Procedure (~2006) LEEP Tobacco Smoking/Tobacco Use Status: Former Tobacco Use Passive smoking exposure: No Second hand exposure: Yes Alcohol Alcohol Intake: current Alcohol intake frequency: holidays/special occasions only Alcohol type: beer and wine Substance Use Substance use: Daily Substance use type: marijuana Details: smoke Vital Signs and Lab Results Vital Signs Most Recent Vital Signs in EMR: Most Recent Vital Signs Temp Pulse Resp BP Pulse Ox 36 C L 66 19 118/77 98 08/24/24 08:55 08/24/24 08:55 08/24/24 08:55 08/24/24 08:55 08/24/24 08:55 Anesthesia Assessment and Plan Anesthesia History Personal History: No History of Anesthesia Complications Family History: No Family History of Anesthesia Complications Exercise Tolerance Exercise Tolerance: Metabolic Equivalents>4 Pertinent Negatives Pertinent Negatives: No Symptoms of GERD, No Major Cardiovascular Symptoms or Complaints, No Major Pulmonary Symptoms or Complaints and No History of CVA/TIA Cardiac & Pulmonary Exam Cardiac Exam: Normal S1/S2 Heart Sounds Pulmonary Exam: Clear Bilateral Breath Sounds Implantable Cardiac Device Does patient have a Pacemaker or an ICD?: No Airway Exam Known Difficult Airway: No Mallampati Class: 2 Mouth Opening: Normal (> 3cm) Thyromental Distance: Less than 3 cm Neck Range of Motion: Full ROM Neck Circumference: Normal Teeth Condition: Normal Dentition ASA Classification ASA Score: ASA 2 Emergency Case?: No NPO Status NPO Status: NPO Clears >2 hours, Solids >8 hours Anesthesia Plan Resuscitation Status: Full Code Anesthesia Technique: General Anesthesia Airway Planned: LMA Monitors Used: Standard Monitors Preoperative Comments:: Removed naproxen from allergy list since patient states [facility] [place] [facility] diagnosed her rash as foliculitis.
[2024-08-24] MEDS: Lactated Ringers 1,000 ML 30 ML IV (10:29)
[2024-08-24] MEDS: ceFAZolin 2 GM/50 ML BAG IVPB (10:53)
[2024-08-24] MEDS: TRANEXAMIC ACID/SOD. CHL. 1,000 MG/100 ML BAG 600 MG IVPB (11:00)
[2024-08-24] MEDS: Bupivacaine 0.25% Pres-Free W/EPI 30 ML VIAL (11:28)
[2024-08-24] MEDS: EPINEPHrine 10 MG/10 ML ML (11:48)
[2024-08-24] MEDS: fentaNYL 100 MCG/2 ML VIAL IVP ×2 (12:19→12:27)
[2024-08-24] MEDS: HYDROmorphone 2 MG/ML SYR IVP ×2 (12:37→12:48)
--- NOTE | 2024-08-24 13:10 | W.ANESPOSTOP ---
Postoperative Evaluation Date, Time and Location Date Performed: 08/24/24 Time Performed: 13:03 Patient Location: PACU Vital Signs Most Recent Imported Vital Signs: Most Recent Vital Signs Temp Pulse Resp BP Pulse Ox 36.5 C 49 L 13 139/80 100 08/24/24 12:55 08/24/24 12:56 08/24/24 12:56 08/24/24 12:56 08/24/24 12:56 Pain Score Most Recent Pain Score: Most Recent Pain Score Pain Level 6 08/24/24 12:55 Assessment Mental Status: Awake (Alert & Oriented to Patient Baseline) Airway and Respiratory Function: Patent airway with normal (patient baseline) respiratory exam Cardiovascular Function: Hemodynamically Stable Hydration Status: Adequately Hydrated Nausea & Vomiting: No Nausea or Vomiting Pain: Pain is Moderate or Severe Postoperative Pain Management: Pain being addressed with medication Peripheral Nerve Block: Patient did not receive a nerve block
== END 2024-08-24 14:45 | disposition home or self-care (01) ==
LOC: SUR 08:52
PROVIDERS: PCP Nurse Practitioner Family; Visit Provider Student in an Organized Health Care Education/Training Program
PROC: (CPT 29870; principal; 2024-08-24 10:30)
DX: S83.242A Other tear of medial meniscus, current injury, left knee, initial encounter (principal); S83.282A Other tear of lateral meniscus, current injury, left knee, initial encounter; M22.42 Chondromalacia patellae, left knee; M79.4 Hypertrophy of (infrapatellar) fat pad; X58.XXXA Exposure to other specified factors, initial encounter
CPT/HCPCS: 29876; 29880; 23472; 64415; 64450; J0131; J0690; J1100; J1171; J1885; J2003; J2270; J2405; J2704; J3010